=== PATIENT | male | born 1990 | race Caucasian/White ===

== ENCOUNTER 2018-09-25 01:32 | Emergency (ER) | payer OTHER ==
[2018-09-25] MEDS ORDERED: IBUPROFEN 800 MG TABLET PO ONE (03:04)
[2018-09-25] MEDS ORDERED: LIDOCAINE 0.5%/EPINEPHRINE INJ 50 ML VIAL INJ ONE (03:05)
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
[2018-09-25] MEDS ORDERED: DIPH/PERTUSS(ACELL)/TETANUS VAC/PF 0.5 ML SYR (>=10YO) IM ONE (04:46)
[2018-09-25 05:13] VITALS: BP 133/78
== END 2018-09-25 05:14 | disposition home or self-care (01) ==
LOC: ER 01:32
PROC: 0HQ1XZZ Repair Face Skin, External Approach (ICD-10-PCS; principal; 2018-09-25)
DX: S01.112A Laceration without foreign body of left eyelid and periocular area, initial encounter (principal); S09.90XA Unspecified injury of head, initial encounter; Y08.89XA Assault by other specified means, initial encounter
CPT/HCPCS: 99283; 90471; 70480; 90715; 12013; J3490

== ENCOUNTER 2018-10-08 12:02 | Emergency (ER) | payer OTHER ==
--- NOTE | 2018-10-08 15:36 | ER Document Report ---
ED Wound - General Chief Complaint: Wound Infection Stated Complaint: SUTURE COMPLICATIONS Time Seen by Provider: 10/08/18 12:27 Mode of Arrival: Ambulatory Information source: Patient Notes: 27-year-old male presented to ED for complications to sutures to his left eyebrow. He states he was seen in the emergency room on 25 September and received sutures for a laceration. He states that he sutures were supposed to dissolve but did not and he has had swelling and pain for the last couple days. States he is also being treated for strep times 2 days and is on amoxicillin for the strep. 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 TRAVEL OUTSIDE OF THE [place] IN LAST 30 DAYS: No - HPI Patient complains to provider of: Laceration Occurred: Other Onset/Duration: Gradual Quality of pain: Other - Stinging Severity: Mild Pain Level: 1 Context: Other - Laceration that was sutured on the Skin Color: Other - Dehisced laceration after sutures were removed. Left eyebrow Associated Symptoms: Drainage, Swelling - Related Data Allergies/Adverse Reactions: No Known Allergies Allergy (Verified 10/08/18 12:04) Past Medical History - General Information source: Patient - Social History Smoking Status: Never Smoker Chew tobacco use (# tins/day): No Frequency of alcohol use: Occasional Occupation: Active duty Family History: Reviewed & Not Pertinent Patient has suicidal ideation: No Patient has homicidal ideation: No - Past Medical History Cardiac Medical History: Reports: None Pulmonary Medical History: Reports: None EENT Medical History: Reports: None Neurological Medical History: Reports: None Renal/ Medical History: Reports: None Malignancy Medical History: Reports None GI Medical History: Reports: None Musculoskeletal Medical History: Reports None Skin Medical History: Reports None Psychiatric Medical History: Reports: None Traumatic Medical History: Reports: None Infectious Medical History: Reports: None Surgical Hx: Negative Past Surgical History: Reports: None Review of Systems - Review of Systems Constitutional: No symptoms reported EENT: Other - Open wound to the left eyebrow. Sutures were removed drainage was cleaned wound is not red or inflamed at this time. He states is very minimal pain Cardiovascular: No symptoms reported Respiratory: No symptoms reported Gastrointestinal: No symptoms reported Genitourinary: No symptoms reported Male Genitourinary: No symptoms reported Musculoskeletal: No symptoms reported Skin: Other - Open wound to the left eyebrow. Sutures were removed site clean patient is on amoxicillin. Hematologic/Lymphatic: No symptoms reported Neurological/Psychological: No symptoms reported Physical Exam - Vital signs Vitals: Temp Pulse Resp BP Pulse Ox 98.1 F 63 14 112/71 98 10/08/18 12:08 10/08/18 12:08 10/08/18 12:08 10/08/18 12:08 10/08/18 12:08 Interpretation: Normal - General General appearance: Appears well, Alert - HEENT Head: Open wounds - Left eyebrow, Tenderness. No: Ecchymosis Eyes: Normal Pupils: PERRL Ears: Normal External canal: Normal Tympanic membrane: Normal Sinus: Normal Nasal: Normal Mouth/Lips: Normal Mucous membranes: Normal Pharynx: Normal Neck: Normal - Respiratory Respiratory status: No respiratory distress Chest status: Nontender Breath sounds: Normal Chest palpation: Normal - Cardiovascular Rhythm: Regular Heart sounds: Normal auscultation Murmur: No - Abdominal Inspection: Normal Distension: No distension Bowel sounds: Normal Tenderness: Nontender Organomegaly: No organomegaly - Back Back: Normal, Nontender - Extremities General upper extremity: Normal inspection, Nontender, Normal color, Normal ROM, Normal temperature General lower extremity: Normal inspection, Nontender, Normal color, Normal ROM, Normal temperature, Normal weight bearing. No: Gustavo's sign - Neurological Neuro grossly intact: Yes Cognition: Normal Orientation: AAOx4 [place] Coma Scale Eye Opening: Spontaneous John Coma Scale Verbal: Oriented [place] Coma Scale Motor: Obeys Commands John Coma Scale Total: 15 Speech: Normal Motor strength normal: LUE, RUE, LLE, RLE Sensory: Normal - Psychological Associated symptoms: Normal affect, Normal mood - Skin Skin Temperature: Warm Skin Moisture: Dry Skin Color: Normal Location of irregularity: Face - Laceration to the left eyebrow was sutured on the . Patient is on amoxicillin. Sutures have been removed wound has been clean patient states the pain is minimal now that the sutures are removed. There is no redness or inflammation noted around the site. Irregularity with: Tenderness Course - Re-evaluation Re-evalutation: 10/09/18 02:07 Sutures removed from his left eyebrow wound cleaned well with Shur-Clens and saline. Patient was instructed on use of bacitracin to the area. Patient states after the sutures were removed and the wound was cleaned his pain was almost no pain. He was instructed to use bacitracin and continue to clean the wound. Patient instructed if his wound became red and inflamed and more painful to please return to the ED or to his primary care doctor. - Vital Signs Vital signs: Temp Pulse Resp BP Pulse Ox 98.6 F 62 14 129/81 H 98 10/08/18 15:43 10/08/18 15:43 10/08/18 12:08 10/08/18 15:43 10/08/18 15:43 Discharge - Discharge Clinical Impression: Infected wound Condition: Stable Disposition: HOME, SELF-CARE Additional Instructions: You have seen today for recheck on your laceration to your left eyebrow. The sutures have been removed and the wound has been cleaned. SOAP CLEANSING: Gently wash the wound daily using a mild soap (like Ivory, Phisoderm, Neutrogena). Use warm water, rubbing gently until all debris, ooze, and crusting have been washed from the wound. Allow to dry briefly (about 10 minutes) after cleaning. Repeat this cleansing at least three times a day for the first two days and then once or twice a day. Follow-up with your doctor in 1-2 days. Also take your amoxicillin as prescribed. If it is not for complete 10 days please be sure that your doctor prescribes it for 10 days. He states she thought it was for 10 days. This wound should heal it will take a little longer since it is now open. Please clean the wound 3 times a day as I have described to you. I have given you sponges to use as well as soap. Please rinse well after you have cleaned it. I have given you Band-Aids if you want to cover it but it can be left open. FOLLOW-UP CARE: If you have been referred to a physician for follow-up care, call the physician s office for an appointment as you were instructed or within the next two days. If you experience worsening or a significant change in your symptoms, notify the physician immediately or return to the Emergency Department at any time for re- evaluation.
[2018-10-08 15:45] VITALS: BP 129/81
== END 2018-10-08 15:45 | disposition home or self-care (01) ==
LOC: ER 12:02
DX: S01.112D Laceration without foreign body of left eyelid and periocular area, subsequent encounter (principal); L08.9 Local infection of the skin and subcutaneous tissue, unspecified; X58.XXXD Exposure to other specified factors, subsequent encounter; A49.1 Streptococcal infection, unspecified site
CPT/HCPCS: 99282

== ENCOUNTER 2019-05-02 13:07 | Emergency (ER) | payer OTHER ==
[2019-05-02 13:15] VITALS: BP 133/74
--- NOTE | 2019-05-02 14:08 | RADIOLOGY REPORT (SQ) ---
EXAM DESCRIPTION: HAND LEFT 3 VIEWS COMPLETED DATE/TIME: 05/02/2019 1:59 pm REASON FOR STUDY: hand pain nail thru hand yesterday COMPARISON: None. EXAM PARAMETERS: NUMBER OF VIEWS: Three views. TECHNIQUE: AP, lateral and oblique radiographic images acquired of the left hand. LIMITATIONS: None. FINDINGS: MINERALIZATION: Normal. BONES: No acute fracture or dislocation. No worrisome bone lesions. JOINTS: No effusions. SOFT TISSUES: No soft tissue swelling. No radiopaque foreign body. OTHER: No other significant finding. IMPRESSION: No evidence of acute bony abnormality. No radiopaque foreign body. TECHNICAL DOCUMENTATION: JOB ID: [id number] [employer]- All Rights Reserved Reading location - IP/workstation name: [email or web address]
--- NOTE | 2019-05-02 14:11 | ER Document Report ---
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 Patient reports that yesterday he put a nail through his left hand accidentally when he was working on a fence. It was a dirty nail.. He pulled it out. Reports he felt pain but was okay.. Today he woke up and he cannot extend or flex his middle finger. Reports tetanus is up-to-date. Patient is an active duty . Associated Symptoms: None Exacerbated by: Movement Relieved by: Denies Similar symptoms previously: No Recently seen / treated by doctor: No Past Medical History - General Information source: Patient - Social History Smoking Status: Never Smoker Chew tobacco use (# tins/day): No Frequency of alcohol use: Occasional Drug Abuse: None Lives with: Family Family History: Reviewed & Not Pertinent Patient has suicidal ideation: No Patient has homicidal ideation: No - Medical History Medical History: Negative Renal/ Medical History: Denies: Hx Peritoneal Dialysis Surgical Hx: Negative - Immunizations Immunizations up to date: Yes Hx Diphtheria, Pertussis, Tetanus Vaccination: Yes Vertical Provider Document - CONSTITUTIONAL Agree With Documented VS: Yes Exam Limitations: No Limitations General Appearance: WD/WN, No Apparent Distress - INFECTION CONTROL TRAVEL OUTSIDE OF THE [place] IN LAST 30 DAYS: No - HEENT HEENT: Atraumatic, Normocephalic - NECK Neck: Supple - RESPIRATORY Respiratory: No Respiratory Distress - CARDIOVASCULAR Cardiovascular: Regular Rate - MUSCULOSKELETAL/EXTREMETIES Musculoskeletal/Extremeties: Tender - left hand middle digit ttp with flexion and extension, left hand slightly swollen, slight erythema to palm. Complains of pain with passive movement. Good cap refill good radial pulse - NEURO Level of Consciousness: Awake, Alert, Appropriate Motor/Sensory: No Motor Deficit - DERM Integumentary: Warm, Dry Course - Re-evaluation Re-evalutation: 05/02/19 14:44 This 28-year-old male with complaints of left hand pain after he put a nail through his palm and pulled it out yesterday presents emergency department because he cannot flex or extend his middle finger. Contacted radiology who reports patient will probably need an MRI but is very difficult to see tendon injury on that. I contacted my attending Dr. Cordova, who advises discharge and the patient to go to the [facility]. 05/02/19 15:23 I attempted to contact [facility] for Ortho consult. No return call contacted Dr. Mclaughlin. Dr. Mclaughlin reports if no signs of infection patient could be splinted and follow-up in the office the next day. 05/02/19 16: 00 Dr. Chandler from [place] returned to call. We discussed patient's symptoms. We did plan for patient to be discharged here [facility]. I reviewed patient's hand and became concerned because it did seem a little bit erythema to the center of the palm with swelling. No warmth. Patient does have pain with any time of passive flexion or extension of his middle finger. Due to this I did contact Dr. Chandler back [place]. Erickson from transfer center at the [facility] reports patient will be transferred ED to ED under the care of Dr. Ye. Patient updated on plan of care agrees to transfer. 16:30 Patient remained in the internal waiting area until the [facility] team arrived. His is at his side he verbalized understanding to all plan of care. Hand X-Ray 05/02/19 13:39 IMPRESSION: No evidence of acute bony abnormality. No radiopaque foreign body. - Vital Signs Vital signs: Temp Pulse Resp BP Pulse Ox 97.7 F 79 18 133/74 H 98 05/02/19 13:14 05/02/19 13:14 05/02/19 13:14 05/02/19 13:14 05/02/19 13:14 - Diagnostic Test Radiology reviewed: Image reviewed, Reports reviewed Discharge - Discharge Clinical Impression: possible tendon injury Puncture wound of left hand Qualifiers: Encounter type: initial encounter Foreign body presence: without foreign body Qualified Code(s): S61.432A - Puncture wound without foreign body of left hand, initial encounter Condition: Stable Disposition: [facility] Unit Admitted: Post Additional Instructions: Referrals: CRISTOFER BENZ, [Primary Care Provider] - Follow up as needed
== END 2019-05-02 16:34 ==
LOC: ER 13:07
DX: S61.432A Puncture wound without foreign body of left hand, initial encounter (principal); M79.642 Pain in left hand; W45.0XXA Nail entering through skin, initial encounter